=== PATIENT | male | born 1980 | race Two or more races ===

== ENCOUNTER 2024-08-03 11:10 | Outpatient (CLI) | payer OTHER | END 2024-08-03 11:13 | disposition home or self-care (01) | LOC: NUCLEAR 11:10 | DX: M79.661 Pain in right lower leg (principal); M79.652 Pain in left thigh; M79.10 Myalgia, unspecified site ==

== ENCOUNTER 2024-10-28 12:02 | Outpatient (CLI) | payer OTHER | END 2024-10-28 12:14 | disposition home or self-care (01) | LOC: SONOGRAMA 12:02 | DX: M06.9 Rheumatoid arthritis, unspecified (principal); M05.9 Rheumatoid arthritis with rheumatoid factor, unspecified ==

== ENCOUNTER 2024-11-09 09:58 | Outpatient (CLI) | payer OTHER | END 2024-11-09 09:59 | disposition home or self-care (01) | LOC: SONOGRAMA 09:58 | DX: M06.9 Rheumatoid arthritis, unspecified (principal); M05.9 Rheumatoid arthritis with rheumatoid factor, unspecified ==